=== PATIENT | female | born 1985 | race Caucasian/White ===

== ENCOUNTER 2019-03-03 11:39 | Emergency (ER) | payer OTHER ==
[~2019-03-03] VITALS: Ht 165.1 cm; Wt 61.2 kg
[2019-03-03] MEDS ORDERED: SEASONIQUE 0.11 EACH PO (11:51)
[2019-03-03] MEDS ORDERED: AUGMENTIN 875-1 EACH PO (11:58)
== END 2019-03-03 12:03 | disposition home or self-care (01) ==
LOC: ED 11:39
DX: S61.451A Open bite of right hand, initial encounter (principal); Z79.899 Other long term (current) drug therapy; W54.0XXA Bitten by dog, initial encounter
CPT/HCPCS: 99283